=== PATIENT | female | born 1990 | race Caucasian/White ===

== ENCOUNTER 2017-03-17 23:12 | Emergency (ER) | payer BC ==
[2017-03-17 23:53] LABS: ABS Basophils 0 10^3/ul (0-0.2); ABS Eosinophils 0 10^3/ul (0-0.6); ABS Lymphocytes 0.9 10^3/ul (1.0-4.8); ABS Monocytes 0.3 10^3/ul (0-0.8); ABS Neutrophils 2.9 10^3/ul (1.5-7.7); ABS Nucleated RBC 0 10^3/ul; Eosinophil % 0.3 % (0-6); Hematocrit 38 % (35-47); Hemoglobin 13.3 g/dl (12.0-16.0); Lymphocyte % 22.1 % (25-47); Mean Corpuscular HGB Conc 35 g/dl (31-36); Mean Corpuscular Hemoglobin 31 pg (27-31); Mean Corpuscular Volume 89 fL (80-97); Mean Platelet Volume 8 um3 (7.4-10.4); Nucleated Red Blood Cells % 0; Platelet Count 195 10^3/ul (150-450); Red Cell Distribution Width 12 % (10.5-15); White Blood Count 4.1 10^3/ul (3.5-10.8)
[2017-03-18 00:09] LABS: EGFR Non-African American 94.9 (>60)
[2017-03-18] MEDS ORDERED: NS 0.9% 1000 ML* 2,000 ML IV ONE (00:40)
[2017-03-18] MEDS ORDERED: Levofloxacin 500 MG IVPREMIX(* 500 MG/100 ML BAG IVPB ONE (00:40)
[2017-03-18] MEDS ORDERED: Acetaminophen TAB* 325 MG PO ONE (00:40)
[2017-03-18] MEDS ORDERED: Ketorolac INJ* 30 MG/ML 1 ML VIAL IV PUSH ONE (00:41)
--- NOTE | 2017-03-18 02:02 | RAD ---
Indication: Lower abdominal pain. Comparison: No relevant prior exams available [place] [facility] [place]. Technique: Transvaginal pelvic ultrasound. Report: 6.4 x 3.2 x 5.0 cm anteverted uterus with 2.7 mm endometrium. No uterine lesion evident. Negative for free pelvic fluid. 2.0 x 1.1 x 1.3 cm RIGHT ovary with documented vascular flow is unremarkable. 3.3 x 1.6 x 3.0 cm LEFT ovary with documented vascular flow is remarkable for small follicles only. No suspicious ovarian or extraovarian adnexal region lesions evident. IMPRESSION: Negative pelvic ultrasound.
[2017-03-18 02:28] LABS: Urine Appearance Clear; Urine Blood 1+ (Negative); Urine Color Yellow; Urine Ketones 1+ (Negative); Urine Protein Negative (Negative); Urine Specific Gravity 1.027 (1.010-1.030); Urine Urobilinogen Negative (Negative)
[2017-03-18] MEDS ORDERED: Ondansetron INJ* 2 MG/ML VIAL IV ONE (02:56)
[2017-03-18] MEDS ORDERED: Morphine INJ* 4 MG/ML 1 ML CARPUJECT IV ONE (02:56)
--- NOTE | 2017-03-18 03:33 | ED ---
Genet Barrios Gabriel, scribed for Tara Adams MD on 03/18/17 at 0041 . Abdominal Pain/Female - HPI Summary HPI Summary: This patient is a 26 year old F presenting to [facility] with a chief complaint of ABD pain since 3 days ago. The patient rates the pain 7/10 in severity. Located in RLQ and radiating into her lower back. Patient reports chills. Patient denies vomiting and dysuria. Patient is currently menstruating. - History of Current Complaint Chief Complaint: EDAbdPain Stated Complaint: BACK/ABD PAIN, WEAKNESS Time Seen by Provider: 03/18/17 00:31 Hx Obtained From: Patient Onset/Duration: Lasting Days - 3 Timing: Constant Severity Initially: Mild Severity Currently: Mild Pain Intensity: 7 Pain Scale Used: 0-10 Numeric Location: Diffuse Radiates: Yes Radiates to: Back Associated Signs and Symptoms: Positive: Negative - dysuria, Other: - chills. Negative: Vomiting, Diarrhea Allergies/Adverse Reactions: Allergies Allergy/AdvReac Type Severity Reaction Status Date / Time No Known Allergies Allergy Verified 03/17/17 23:22 PMH/Surg Hx/FS Hx/Imm Hx Infectious Disease History: No Infectious Disease History: Denies: Traveled Outside the [place] in Last 30 Days Review of Systems Positive: Chills Positive: Abdominal Pain. Negative: Vomiting Negative: dysuria Positive: Other - pain into back All Other Systems Reviewed And Are Negative: Yes Physical Exam - Summary Physical Exam Summary: VITAL SIGNS: Reviewed. GENERAL: Patient is a well-developed and nourished female who is lying comfortable in the stretcher. Patient is not in any acute respiratory distress. HEAD AND FACE: No signs of trauma. No ecchymosis, hematomas or skull depressions. No sinus tenderness. EYES: PERRLA, EOMI x 2, No injected conjunctiva, no nystagmus. EARS: Hearing grossly intact. Ear canals and tympanic membranes are within normal limits. MOUTH: Oropharynx within normal limits. NECK: Supple, trachea is midline, no adenopathy, no JVD, no carotid bruit, no c- spine tenderness, neck with full ROM. CHEST: Symmetric, no tenderness at palpation LUNGS: Clear to auscultation bilaterally. No wheezing or crackles. CVS: Regular rate and rhythm, S1 and S2 present, no murmurs or gallops appreciated. ABDOMEN: Soft with LLQ tednerness. No signs of distention. No rebound no guarding, and no masses palpated. Bowel sounds are normal. EXTREMITIES: FROM in all major joints, no edema, no cyanosis or clubbing. NEURO: Alert and oriented x 3. No acute neurological deficits. Speech is normal and follows commands. SKIN: Dry and warm Triage Information Reviewed: Yes Vital Signs On Initial Exam: Initial Vitals Temp Pulse Resp BP Pulse Ox 103.8 F 113 20 120/72 97 03/17/17 23:19 03/17/17 23:19 03/17/17 23:19 03/17/17 23:19 03/17/17 23:19 Vital Signs Reviewed: Yes Diagnostics - Vital Signs Vital Signs Temp Pulse Resp BP Pulse Ox 03/17/17 23:19 103.8 F 113 20 120/72 97 - Laboratory Lab Results: Lab Results 03/17/17 03/17/17 Range/Units 23:39 23:39 WBC 4.1 (3.5-10.8) 10^3/ul RBC 4.30 (4.0-5.4) 10^6/ul Hgb 13.3 (12.0-16.0) g/dl Hct 38 (35-47) % MCV 89 (80-97) fL MCH 31 (27-31) pg MCHC 35 (31-36) g/dl RDW 12 (10.5-15) % Plt Count 195 (150-450) 10^3/ul MPV 8 (7.4-10.4) um3 Neut % (Auto) 70.0 (38-83) % Lymph % (Auto) 22.1 L (25-47) % Taney % (Auto) 6.5 (1-9) % Eos % (Auto) 0.3 (0-6) % Baso % (Auto) 1.1 (0-2) % Absolute Neuts (auto) 2.9 (1.5-7.7) 10^3/ul Absolute Lymphs (auto) 0.9 L (1.0-4.8) 10^3/ul Absolute Monos (auto) 0.3 (0-0.8) 10^3/ul Absolute Eos (auto) 0 (0-0.6) 10^3/ul Absolute Basos (auto) 0 (0-0.2) 10^3/ul Absolute Nucleated RBC 0 10^3/ul Nucleated RBC % 0 Sodium 133 (133-145) mmol/L Potassium 4.0 (3.5-5.0) mmol/L Chloride 101 (101-111) mmol/L Carbon Dioxide 25 (22-32) mmol/L Anion Gap 7 (2-11) mmol/L BUN 16 (6-24) mg/dL Creatinine 0.74 (0.51-0.95) mg/dL Est GFR ( Amer) 122.0 (>60) Est GFR (Non-Af Amer) 94.9 (>60) BUN/Creatinine Ratio 21.6 H (8-20) Glucose 103 H (70-100) mg/dL Calcium 9.0 (8.6-10.3) mg/dL Total Bilirubin 0.30 (0.2-1.0) mg/dL AST 26 (13-39) U/L ALT 22 (7-52) U/L Alkaline Phosphatase 52 (34-104) U/L C-Reactive Protein 39.33 H (< 5.00) mg/L Total Protein 7.2 (6.4-8.9) g/dL Albumin 4.1 (3.2-5.2) g/dL Globulin 3.1 (2-4) g/dL Albumin/Globulin Ratio 1.3 (1-3) Lipase 42 (11.0-82.0) U/L Beta HCG, Quant Pending Result Diagrams: 03/17/17 23:39 03/17/17 23:39 Lab Statement: Any lab studies that have been ordered have been reviewed, and results considered in the medical decision making process. - CT CT ABD/Pelvis CT Interpretation Completed By: Radiologist - CT ABD/Pelvis reveals, per radiologist, no localizing signs for acute pathology ED physician has reviewed this radiology report. - Additional Comments Diagnostic Additional Comments: US transvaginal reveals, per radiologist, Negative pelvic ultrasound. ED physician has reviewed this radiology report. Abdominal Pain Fem Course/Dx - Course Course Of Treatment: This patient is a 26 year old F presenting to [facility] with a chief complaint of ABD pain since 3 days ago. The patient rates the pain 7/10 in severity. Located in RLQ and radiating into her lower back. Patient reports chills. Patient denies vomiting and dysuria. Patient is currently menstruating. CT ABD/Pelvis reveals, per radiologist, no localizing signs for acute pathology. US transvaginal reveals, per radiologist, Negative pelvic ultrasound. Test results with no significant abnormalities. In the ED course the patient was given Levaquin, Zofran, and IV fluids. The patient is agreeable with this plan. - Diagnoses Provider Diagnoses: Abdominal pain Discharge - Discharge Plan Condition: Stable Disposition: HOME Patient Education Materials: Abdominal Pain (ED) Referrals: [facility] [place] [facility]FERRAL [Outside] - 2 Days No Primary Care Phys,NOPCP [Primary Care Provider] - Additional Instructions: RETURN TO EMERGENCY DEPARTMENT FOR ANY NEW OR WORSENING SYMPTOMS The documentation as recorded by the Genet murcia Gabriel accurately reflects the service I personally performed and the decisions made by , Tara Adams MD.
[2017-03-18 04:29] VITALS: BP 110/66
--- NOTE | 2017-03-18 08:00 | RAD ---
INDICATION: Abdominal pain. COMPARISON: Comparison is made with a prior pelvic ultrasound from March 17, 2017. TECHNIQUE: A CT scan of the abdomen and pelvis was performed without intravenous or oral contrast. Contiguous axial sections were obtained from the lung bases through the symphysis pubis. Images were reconstructed in the coronal and sagittal planes. FINDINGS: The lung bases are clear. No pleural effusion is present. The liver and spleen are within normal limits in size without significant focal abnormality on this noncontrast study. No calcified gallstones are seen. The pancreas appears to be within normal limits in size. The kidneys and adrenal glands are normal in size. There are faint areas of increased density in the medullary portions of both kidneys likely representing faint calcifications. No discrete calculus is seen. No hydronephrosis is present. The aorta is normal in caliber without significant calcific plaque. The stomach, small and large bowel appear nondistended. The appendix is within normal limits. There is mild descending and sigmoid diverticulosis without evidence for diverticulitis. The uterus is anteverted and normal in size. No free intraperitoneal air or fluid is seen. No significant focal osseous abnormality is seen. IMPRESSION: 1. NO EVIDENCE FOR ACUTE FINDING OR CAUSE FOR THE PATIENT'S ABDOMINAL PAIN IS SEEN. 2. FINDINGS SUGGESTIVE THE POSSIBILITY OF MEDULLARY SPONGE KIDNEY DISEASE.
== END 2017-03-18 04:28 | disposition home or self-care (01) ==
LOC: ED 23:12
DX: R10.31 Right lower quadrant pain (principal)
CPT/HCPCS: 36415; 74176; 76830; 80053; 81003; 81015; 83605; 83690; 84702; 85025; 86140; 87040; 96374; 96375; 99283; A9270-GY; J1956; J2270; J2405